=== PATIENT | female | born 1960 | race Caucasian/White ===

== ENCOUNTER 2020-11-27 09:58 | Day surgery (SDC) | payer OTHER ==
[~2020-11-27] VITALS: Ht 143 cm; Wt 77.1 kg
[2020-11-27] MEDS ORDERED: fentaNYL citrate 0.05 MG/ML VIAL ONE (11:11)
[2020-11-27] MEDS ORDERED: diphenhydrAMINE 50 MG/ML VIAL ONE (11:11)
[2020-11-27] MEDS ORDERED: LIDOCAINE 2% 100 MG/5 ML UJET TP ONE (11:11)
[2020-11-27] MEDS ORDERED: MIDAZOLAM 5 MG/5 ML VIAL ONE (11:11)
[2020-11-27] MEDS ORDERED: fentaNYL citrate 0.05 MG/ML VIAL IVP ONE (13:10)
[2020-11-27] MEDS ORDERED: MIDAZOLAM 2 MG/2 ML VIAL IVP ONE (13:10)
== END 2020-11-27 12:32 | disposition home or self-care (01) ==
LOC: MDS 09:58 → MMU 10:20 → MDS 12:32
PROVIDERS: ATTEND Internal Medicine Gastroenterology
DX: Z12.11 Encounter for screening for malignant neoplasm of colon (principal); R94.5 Abnormal results of liver function studies; I10 Essential (primary) hypertension; E11.9 Type 2 diabetes mellitus without complications; E03.9 Hypothyroidism, unspecified; E78.5 Hyperlipidemia, unspecified; Z90.49 Acquired absence of other specified parts of digestive tract; Z79.899 Other long term (current) drug therapy; Z90.710 Acquired absence of both cervix and uterus
CPT/HCPCS: 45380; 88305; J2250; J3010; J1200